=== PATIENT | female | born 1970 ===

== ENCOUNTER 2018-08-31 00:48 | Inpatient (IN) | payer SELFPAY ==
[2018-08-31 01:46] LABS: Actual Bicarbonate (HCO3a) 41.3 mEq/L (22-28); Analyzer IN Cardio ER; Base Excess (BEa) 13.8 mEq/L (-2.0 to +3.0); Calcium, Ionized 1.09 mmol/L (1.12-1.30); Hemoglobin (Hb) 14.9 g/dL (12.0-16.0); Potassium - ABG Lab 3.47 mmol/L (3.70-5.30); pH, Arterial 7.44 (7.35-7.45)
[2018-08-31 01:46] LABS: CKMB 1.1 ng/mL (0-6.6); Troponin I Less than 0.010 ng/mL (< 0.028)
[2018-08-31 01:47] LABS: ALV-art Gradient 129.255 (0-20); CO2 Tension 62.9 mmHg (35.0-45.0); O2 Tension (PaO2) 48.8 mmHg (80.0-100.0); Puncture Site RBA
[2018-08-31] MEDS ORDERED: methylPREDNISolone Sod Succ/PF 125 MG/2 ML VIAL ONE (01:50)
[2018-08-31] MEDS ORDERED: Magnesium 2 GM/50 ML BAG (IN WATER) ONE (01:50)
[2018-08-31] MEDS ORDERED: Lorazepam 2 MG/ML VIAL ONE (02:18)
[2018-08-31] MEDS ORDERED: cefTRIAXone\\ROCEPHIN 1 GM in Sodium Chloride 0.9% 100 ML IVPB SCH (04:00)
[2018-08-31 04:01] VITALS: BMI 56.8
[2018-08-31] MEDS ORDERED: Azithromycin 500 MG in Sodium Chloride 0.9% 250 ML 250 ML IVPB SCH (05:00)
[2018-08-31] MEDS ORDERED: Acetaminophen 325 MG TAB PO PRN (08:26)
[2018-08-31] MEDS ORDERED: hydrALAZINE 20 MG/ML VIAL SLOW IVP PRN (08:26)
[2018-08-31] MEDS: Famotidine 20 MG TAB PO SCH ×2 (11:43→21:27)
[2018-08-31] MEDS: Enoxaparin Sodium 40 MG/0.4 ML SYRINGE SC SCH (11:43)
--- NOTE | 2018-08-31 16:44 | HP ---
The patient currently does not have a primary care physician. CHIEF COMPLAINT: Shortness of breath. HISTORY OF PRESENT ILLNESS: Please note that the history of present illness is limited as the patient is currently on BiPAP and it is difficult for her to speak through the mouth. She also is quite tired. Ms. Gallo is a 47-year-old female , who has a history of chronic respiratory failure secondary to COPD. She was in her usual state of health until approximately 1 month ago. She says she began getting more and more short of breath, and then in the last week, she began having cough , which was productive of some yellow sputum. She had been requiring more oxygen than usual. She is apparently on home oxygen. Her O2 sats were in the upper 80s to low 90s. She was having more difficulty breathing, subjective fever and chills, but no chest pains, no nausea, no vomiting. As a result of her symptom, she came to the ER for evaluation in [place]. There, they did a chest x-ray, which demonstrated findings consistent with bilateral pneumonia. She also had an elevated white blood cell count, and she is being transferred to our facility for further treatment. She was also placed on BiPAP due to both hypoxia and hypercapnia. REVIEW OF SYSTEMS: All systems were reviewed and are negative except for that mentioned in the history of present illness. PAST MEDICAL HISTORY: Chronic respiratory failure with hypoxemia due to COPD. PAST SURGICAL HISTORY: She has had a breast cyst removed. ALLERGIES: PENICILLIN. SOCIAL HISTORY: She is a nonsmoker, nondrinker. She is single. She has 2 children. A full code. FAMILY HISTORY: Significant for possible emphysema in her mother. MEDICATIONS: Include; 1. Spiriva. 2. Symbicort 160/4.5 twice a day. 3. Mucinex. 4. Spironolactone 50 mg daily. PHYSICAL EXAMINATION: GENERAL: She is alert and oriented. She is in no acute distress at this time. She is well developed, well nourished. She is morbidly obese. VITAL SIGNS: Her blood pressure was 138/63, heart rate 109, respiratory rate of 24, temperature was 99.9, O2 sat 100% on BiPAP. HEENT: Her pupils are equal, round, and reactive. Her extraocular muscles are intact. Her sclerae are anicteric. Throat, there is no erythema. No exudates. NECK: No adenopathy. No bruits. LUNGS: She has bilateral wheezing and rhonchi as well as rales at the bases. CARDIOVASCULAR: She has normal S1 and S2. I did not appreciate an S3 or S4. No murmurs, clicks, or rubs. ABDOMEN: Obese, soft, nontender, nondistended. Positive for bowel sounds. There is no rebound. No guarding. No organomegaly. EXTREMITIES: She has trace pedal edema, some mild erythema. NEUROLOGIC: Cranial nerves 2 through 12 are grossly intact. Muscle strength is intact in both her upper and lower extremities. SKIN AND INTEGUMENT: Other than some mild erythema in the lower legs and the calf, there are no other skin lesions. LABORATORY AND X-RAY DATA: Her sodium is 143, potassium 4.0, chloride is 95, CO2 is 37, BUN 8.1, creatinine 0.8, glucose is 93, BNP is 15.1. White blood cell count is 18.18, hemoglobin 14.9, hematocrit is 47.6, platelet count is 269. Urinalysis is essentially negative other than large leukocyte esterase and 1+ bacteria. The chest x-ray was reported as having bilateral infiltrates. ASSESSMENT AND PLAN: This is a pleasant 47-year-old female, who presents with Acute on chronic respiratory failure with hypercapnia and hypoxemia. This is likely due to bilateral pneumonia in the setting of chronic obstructive pulmonary disease. For the respiratory failure, we will continue BiPAP. Pulmonology has been consulted and likely will try to wean her BiPAP off as soon as feasible. We will continue DuoNebs as well as empiric IV antibiotics. She has been started on IV Rocephin and Azithromycin in the ER, and will continue these. She will be placed on deep venous thrombosis and gastrointestinal prophylaxis, and further recommendations will depend on her progress. Job ID: [id number] [facility]
[2018-08-31] MEDS: Mometasone/Formoterol 120 PUFF INHALER INH SCH (18:36)
[2018-09-01 04:37] LABS: BUN (Urea Nitrogen) 13 mg/dL (7.0-18.7); Calc. Creatinine Clearance 196 mL/min (70-130); Calcium 9.3 mg/dL (7.8-10.44); Estimated GFR-MDRD 84; Glucose 152 mg/dL (70-105)
[2018-09-01 04:47] LABS: Anion Gap 15 mmol/L (10-20); Carbon Dioxide 35 mmol/L (22-29); Chloride 94 mmol/L (98-107); Potassium 3.8 mmol/L (3.5-5.1); Sodium 140 mmol/L (136-145)
[2018-09-01] MEDS: cefTRIAXone\\ROCEPHIN 1 GM in Sodium Chloride 0.9% 100 ML IVPB SCH (05:01)
[2018-09-01] MEDS: Azithromycin 500 MG in Sodium Chloride 0.9% 250 ML 250 ML IVPB SCH (05:03)
[2018-09-01 05:35] LABS: Band 5 % (5-11); Hemoglobin 13.6 g/dL (12.0-16.0); Lymphocytes 3 % (21-51); MDiff Complete? YES; Mean Corpuscular Hemoglobin 28.4 pg (27.0-31.0); Mean Corpuscular Volume 91.7 fL (78.0-98.0); Mean Platelet Volume 9.2 fL (7.4-10.4); Monocytes 2 % (0-10); Neutrophil 90 % (42-75); PLT Morphology Comment Appears Adequate; Platelet Count 240 thou/uL (130-400); RBC Distribution Width 14.2 % (11.5-14.5); RBC Morphology Normal; Red Blood Cell (RBC) Count 4.79 mill/uL (4.20-5.40); White Blood Cell (WBC) Count 14.9 thou/uL (4.8-10.8)
[2018-09-01] MEDS: Mometasone/Formoterol 120 PUFF INHALER INH SCH ×2 (06:50→18:51)
[2018-09-01] MEDS: Enoxaparin Sodium 40 MG/0.4 ML SYRINGE SC SCH (07:30)
[2018-09-01] MEDS: Famotidine 20 MG TAB PO SCH ×2 (07:30→20:14)
--- NOTE | 2018-09-01 08:37 | CON ---
DATE OF CONSULTATION: 08/31/2018 HISTORY OF PRESENT ILLNESS: Ms. Gallo is a 47-year-old female who is followed by [employer]. She was diagnosed with COPD in the past. She has not seen in quite some time. She also has home oxygen. She said she smoked half pack a day for about 20 years. She does not know whether she has ever had alpha-1 antitrypsin testing. She did have asthma as a child. PAST MEDICAL HISTORY: Remarkable for removal of breast cyst. SOCIAL HISTORY: She is a nonsmoker. She is a nondrinker. She has 2 children. She does not use drugs. Full code. FAMILY HISTORY: Not obtained. ALLERGIES: PENICILLIN. MEDICATIONS: Prior to admission, she is on, 1. Symbicort. 2. Spiriva. 3. Mucinex. She said she lost her insurance and she has not been back to see her physician. She is also on aldactone. REVIEW OF SYSTEMS: 10 point review of systems completed, otherwise is negative. The patient is having short of breath while awake. PHYSICAL EXAMINATION: VITAL SIGNS: She is afebrile. Heart rate is 88, respiratory rate is 20, oximetry is 94% on 3L, blood pressure 112/81. HEENT: Pupils are equal. Sclerae are anicteric. GENERAL: She is quite obese. She is 5 feet tall, 291 pounds. NECK: Supple. No lymphadenopathy. LUNGS: Remarkable for distant breath sounds with wheezes diffusely. HEART: Regular rhythm. S1 and S2 are normal. ABDOMEN: Soft and nontender. EXTREMITIES: Without clubbing, cyanosis, or edema. LABORATORY DATA: Blood gas; pH 7.44, pCO2 of 62, and PO2 of 38. There are no labs done here. Apparently, lab was done in [place]. IMPRESSION: 1. Acute on chronic respiratory failure with diagnosis of chronic obstructive pulmonary disease. 2. History of asthma. 3. Alpha 1 Antitrypsin levels to be ordered with phenotype. 4. Needs to repeat labs tomorrow. I suspect she has obesity hypoventilation syndrome as well. At some point, she needs a sleep study. She appears to be clinically stable at this time, probably could move her up to a medical bed. Chest radiograph was reviewed. The chest radiograph reportedly showed bilateral infiltrates . This is a 50 minute consult, with greater than 50% of time spent on unit in coordination of care. Job ID: [id number] [facility]
--- NOTE | 2018-09-01 09:35 | RAD ---
FRONTAL VIEW CHEST: Date: 09/01/18 COMPARISON: 08/30/18. INDICATION: Pneumonia. FINDINGS: There is elevation of the right hemidiaphragm. Interstitial opacities of bilateral perihilar regions are present. Patchy bibasilar densities remain. No significant interval change. IMPRESSION: Persistent bibasilar densities, which may relate to bibasilar pneumonia in the correct clinical nicanor xt. These findings are superimposed upon edema. Continued follow-up with 2 view chest would prove use ful. POS: TPC
--- NOTE | 2018-09-01 11:44 | PRG ---
DATE OF SERVICE: 09/01/2018 SUBJECTIVE: Essence Gallo says she is doing better. OBJECTIVE: VITAL SIGNS: She is afebrile. Heart rate 66, respiratory rate 16, oximetry is 94% on 3 L, blood pressure 130/82. LUNGS: Still remarkable for diffuse coarse wheezes. HEART: Regular rhythm. ABDOMEN: Soft. IMPRESSION: 1. Chronic obstructive pulmonary disease with an exacerbation. 2. Obesity with suspected sleep apnea. 3. ? pneumonia. . 4. Deconditioning. 5. Asthma as a child. 6. Half pack a day smoking for 20 years, usually not enough to create chronic obstructive pulmonary disease. I wonder she did not have chronic persistent asthma. An alpha-1 antitrypsin level has been submitted. PLAN: Continue current care. Job ID: [id number] MTDD
[2018-09-01] MEDS ORDERED: cloNIDine 0.1 MG TAB PO PRN (20:59)
[2018-09-01] MEDS ORDERED: Montelukast Sodium 10 mg Tablet PO SCH (21:00)
--- NOTE | 2018-09-01 21:03 | PDOC.PN ---
- Subjective Encounter Start Date: 09/01/18 Encounter Start Time: 12:00 Patient seen and examined for Resp failure. SOB improving. No new complaints. No overnight events - Objective Resuscitation Status - Order Detail: 08/31/18 08:19 Resuscitation Status Routine Resuscitation Status: FULL: Full Resuscitation MAR Reviewed: Yes Vital Signs & Weight: Vital Signs (12 hours) Temp Pulse Resp BP Pulse Ox 09/01/18 19:48 98.1 F 97 21 H 158/82 H 91 L 09/01/18 18:50 84 20 09/01/18 13:46 90 16 Weight Weight 291 lb 1.6 oz I&O: 08/31/18 09/01/18 09/02/18 06:59 06:59 06:59 Intake Total 360 750 960 Output Total 500 500 Balance -140 250 960 Result Diagrams: 09/01/18 03:55 09/01/18 03:55 Phys Exam - Physical Examination Constitutional: NAD Respiratory: no wheezing Bibasilar rales with rhonchi Cardiovascular: RRR, no rub Gastrointestinal: soft, positive bowel sounds Musculoskeletal: no edema Neurological: moves all 4 limbs Dx/Plan (1) Acute respiratory failure with hypoxia and hypercapnia Code(s): J96.01 - ACUTE RESPIRATORY FAILURE WITH HYPOXIA; J96.02 - ACUTE RESPIRATORY FAILURE WITH HYPERCAPNIA Status: Acute Comment: s/p NIPPV (2) CAP (community acquired pneumonia) Code(s): J18.9 - PNEUMONIA, UNSPECIFIED ORGANISM Status: Acute Comment: ? Pneumococcal (3) Chronic respiratory failure Code(s): J96.10 - CHRONIC RESPIRATORY FAILURE, UNSP W HYPOXIA OR HYPERCAPNIA Status: Chronic (4) Morbid obesity with BMI of 50.0-59.9, adult Code(s): E66.01 - MORBID (SEVERE) OBESITY DUE TO EXCESS CALORIES; Z68.43 - BODY MASS INDEX (BMI) 50-59.9, ADULT Status: Chronic (5) HTN (hypertension) Code(s): I10 - ESSENTIAL (PRIMARY) HYPERTENSION Status: Chronic - Plan DVT proph w/SCDs * Cont Atbx * Nebs Q4h * Resume Singuilair * AM labs * Cont other meds as below * Ambulate Review of Systems - Review of Systems Constitutional: negative: fever, chills, sweats, weakness, malaise, other Cardiovascular: negative: chest pain, palpitations, orthopnea, paroxysmal nocturnal dyspnea, edema, light headedness, other Gastrointestinal: negative: Nausea, Vomiting, Abdominal Pain, Diarrhea, Constipation, Melena, Hematochezia, Other - Medications/Allergies Allergies/Adverse Reactions: Allergies Allergy/AdvReac Type Severity Reaction Status Date / Time Penicillins Allergy Verified 08/31/18 03:56 Medications: Current Medications Acetaminophen (Tylenol) 650 mg PO Q4H PRN PRN Reason: Headache/Fever/Mild Pain (1-3) Last Admin: 09/01/18 15:17 Dose: 650 mg Albuterol/Ipratropium (Duoneb) 3 ml NEB [id number] HE Albuterol/Ipratropium (Duoneb) 3 ml NEB [id number] PRN PRN Reason: SOB &/or Wheezing Clonidine (Catapres) 0.1 mg PO Q4H PRN PRN Reason: Systolic BP > 180 Enoxaparin Sodium (Lovenox) 40 mg SC 0900 [facility] Last Admin: 09/01/18 07:30 Dose: 40 mg Escitalopram Oxalate (Lexapro) 10 mg PO DAILY [facility] Famotidine (Pepcid) 20 mg PO BID [facility] Last Admin: 09/01/18 20:14 Dose: 20 mg Hydralazine HCl (Apresoline) 10 mg SLOW IVP Q4H PRN PRN Reason: SBP > 180 and HR < 70 Azithromycin 500 mg/ Sodium (Chloride) 250 mls @ 250 mls/hr IVPB 0600 [facility] Last Admin: 09/01/18 05:03 Dose: 250 mls Ceftriaxone Sodium 1 gm/ (Sodium Chloride) 100 mls @ 200 mls/hr IVPB 0500 [facility] Last Admin: 09/01/18 05:01 Dose: 100 mls Methylprednisolone Sodium Succinate (Solu-Medrol) 40 mg IVP Q8HR [facility] Last Admin: 09/01/18 13:19 Dose: 40 mg Mometasone Furoate/Formoterol Fumar (Dulera 100 Mcg/5 Mcg Inhaler) 1 puff INH BID-RT [facility] Last Admin: 09/01/18 18:51 Dose: 1 puff Montelukast Sodium (Singulair) 10 mg PO QPM [facility] Last Admin: 09/01/18 20:14 Dose: 10 mg
[2018-09-02] MEDS: cefTRIAXone\\ROCEPHIN 1 GM in Sodium Chloride 0.9% 100 ML IVPB SCH (04:57)
[2018-09-02 05:23] LABS: Band 8 % (5-11); Hemoglobin 13.4 g/dL (12.0-16.0); Lymphocytes 5 % (21-51); MDiff Complete? YES; Mean Corpuscular HGB CONC 30.9 g/dL (32.0-36.0); Mean Corpuscular Hemoglobin 28.1 pg (27.0-31.0); Mean Platelet Volume 9.1 fL (7.4-10.4); Monocytes 4 % (0-10); Neutrophil 82 % (42-75); Nucleated RBC 1 % (0); Ovalocytes SLIGHT = 2-5 cells (100X) (0-1/hpf); PLT Morphology Comment Appears Adequate; Platelet Count 257 thou/uL (130-400); RBC Distribution Width 14.2 % (11.5-14.5); Reactive Lymphocytes 1 % (0-10); Red Blood Cell (RBC) Count 4.77 mill/uL (4.20-5.40); White Blood Cell (WBC) Count 14.7 thou/uL (4.8-10.8)
[2018-09-02 05:32] LABS: Anion Gap 13 mmol/L (10-20); BUN (Urea Nitrogen) 18 mg/dL (7.0-18.7); Calc. Creatinine Clearance 193 mL/min (70-130); Calcium 9.1 mg/dL (7.8-10.44); Carbon Dioxide 36 mmol/L (22-29); Chloride 95 mmol/L (98-107); Estimated GFR-MDRD 83; Glucose 146 mg/dL (70-105); Magnesium 2.3 mg/dL (1.6-2.6); Potassium 3.7 mmol/L (3.5-5.1); Sodium 140 mmol/L (136-145)
[2018-09-02] MEDS: Azithromycin 500 MG in Sodium Chloride 0.9% 250 ML 250 ML IVPB SCH (06:05)
[2018-09-02] MEDS: Mometasone/Formoterol 120 PUFF INHALER INH SCH (07:01)
[2018-09-02 08:00] VITALS: BP 130/78; TEMP 98.2
[2018-09-02] MEDS: Famotidine 20 MG TAB PO SCH (08:55)
[2018-09-02] MEDS: Enoxaparin Sodium 40 MG/0.4 ML SYRINGE SC SCH (08:55)
[2018-09-02] MEDS ORDERED: Escitalopram Oxalate 10 mg Tablet PO SCH (09:00)
[2018-09-02] MEDS ORDERED: guaiFENesin ER 600 MG TAB PO SCH (09:00)
--- NOTE | 2018-09-02 14:34 | PDOC.PN ---
- Subjective Encounter Start Date: 09/02/18 Encounter Start Time: 09:30 Patient seen and examined for Resp failure. No new complaints. No overnight events - Objective Resuscitation Status - Order Detail: 08/31/18 08:19 Resuscitation Status Routine Resuscitation Status: FULL: Full Resuscitation MAR Reviewed: Yes Vital Signs & Weight: Vital Signs (12 hours) Temp Pulse Resp BP Pulse Ox 09/02/18 14:16 75 18 90 L 09/02/18 10:15 88 20 90 L 09/02/18 08:00 93 L 09/02/18 07:56 98.2 F 94 22 H 130/78 93 L 09/02/18 07:01 95 22 H 92 L 09/02/18 06:45 78 20 93 L Weight Weight 291 lb 1.6 oz I&O: 09/01/18 09/02/18 09/03/18 06:59 06:59 06:59 Intake Total 750 960 Output Total 500 Balance 250 960 Result Diagrams: 09/02/18 04:06 09/02/18 04:06 Phys Exam - Physical Examination Constitutional: NAD Respiratory: no wheezing Scat rhonchi Cardiovascular: RRR, no rub Gastrointestinal: soft, non-tender Musculoskeletal: no edema Neurological: moves all 4 limbs Dx/Plan (1) Acute respiratory failure with hypoxia and hypercapnia Code(s): J96.01 - ACUTE RESPIRATORY FAILURE WITH HYPOXIA; J96.02 - ACUTE RESPIRATORY FAILURE WITH HYPERCAPNIA Status: Acute Comment: s/p NIPPV (2) CAP (community acquired pneumonia) Code(s): J18.9 - PNEUMONIA, UNSPECIFIED ORGANISM Status: Acute Comment: ? Pneumococcal (3) Chronic respiratory failure Code(s): J96.10 - CHRONIC RESPIRATORY FAILURE, UNSP W HYPOXIA OR HYPERCAPNIA Status: Chronic (4) Morbid obesity with BMI of 50.0-59.9, adult Code(s): E66.01 - MORBID (SEVERE) OBESITY DUE TO EXCESS CALORIES; Z68.43 - BODY MASS INDEX (BMI) 50-59.9, ADULT Status: Chronic (5) HTN (hypertension) Code(s): I10 - ESSENTIAL (PRIMARY) HYPERTENSION Status: Chronic - Plan DVT proph w/SCDs * Cont Atbx/Steroids with Nebs Q4h * Cont other meds as below * Ambulate Review of Systems - Review of Systems Respiratory: negative: Cough, Dry, Shortness of Breath, Hemoptysis, SOB with Excertion, Pleuritic Pain, Sputum, Wheezing Cardiovascular: negative: chest pain, palpitations, orthopnea, paroxysmal nocturnal dyspnea, edema, light headedness, other - Medications/Allergies Allergies/Adverse Reactions: Allergies Allergy/AdvReac Type Severity Reaction Status Date / Time Penicillins Allergy Verified 08/31/18 03:56 Medications: Current Medications Acetaminophen (Tylenol) 650 mg PO Q4H PRN PRN Reason: Headache/Fever/Mild Pain (1-3) Last Admin: 09/01/18 15:17 Dose: 650 mg Albuterol/Ipratropium (Duoneb) 3 ml NEB [id number] [facility] Last Admin: 09/02/18 14:16 Dose: 3 ml Albuterol/Ipratropium (Duoneb) 3 ml NEB Q2H PRN PRN Reason: SOB &/or Wheezing Clonidine (Catapres) 0.1 mg PO Q4H PRN PRN Reason: Systolic BP > 180 Enoxaparin Sodium (Lovenox) 40 mg SC 0900 [facility] Last Admin: 09/02/18 08:55 Dose: 40 mg Escitalopram Oxalate (Lexapro) 10 mg PO DAILY [facility] Last Admin: 09/02/18 08:55 Dose: 10 mg Famotidine (Pepcid) 20 mg PO BID [facility] Last Admin: 09/02/18 08:55 Dose: 20 mg Guaifenesin (Mucinex) 600 mg PO Q12HR [facility] Last Admin: 09/02/18 08:55 Dose: 600 mg Hydralazine HCl (Apresoline) 10 mg SLOW IVP Q4H PRN PRN Reason: SBP > 180 and HR < 70 Azithromycin 500 mg/ Sodium (Chloride) 250 mls @ 250 mls/hr IVPB 0600 [facility] Last Admin: 09/02/18 06:05 Dose: 250 mls Ceftriaxone Sodium 1 gm/ (Sodium Chloride) 100 mls @ 200 mls/hr IVPB 0500 [facility] Last Admin: 09/02/18 04:57 Dose: 100 mls Methylprednisolone Sodium Succinate (Solu-Medrol) 40 mg IVP Q8HR [facility] Last Admin: 09/02/18 06:00 Dose: 40 mg Mometasone Furoate/Formoterol Fumar (Dulera 100 Mcg/5 Mcg Inhaler) 1 puff INH BID-RT HE Last Admin: 09/02/18 07:01 Dose: 1 puff Montelukast Sodium (Singulair) 10 mg PO QPM [facility] Last Admin: 09/01/18 20:14 Dose: 10 mg Sodium Chloride (Flush - Normal Saline) 10 ml IVF PRN PRN PRN Reason: Saline Flush Last Admin: 09/01/18 21:51 Dose: 10 ml
--- NOTE | 2018-09-02 16:00 | DIS ---
DATE OF ADMISSION: 08/31/2018 DATE OF DISCHARGE: 09/02/2018 DISCHARGE DISPOSITION: Home. FOLLOWUP: 1. Follow up with primary care physician out of town in 1 week. 2. Follow up with Dr. Raul Ferrara after 1 to 2 weeks. ALLERGIES: PENICILLIN. THE PATIENT WAS ADVISED TO FOLLOW UP ON ALPHA ANTITRYPSIN LEVELS. DISCHARGE MEDICATIONS: 1. Omnicef 300 mg twice a day. 2. Prednisone taper. 3. All other home medications were left unchanged. BRIEF HOSPITAL COURSE: The patient is a 47-year-old female with chronic respiratory failure, on home oxygen, presented to the emergency room with worsening shortness of breath. Please refer to the history and physical for further details. The patient was admitted to the hospital with a diagnosis of acute hypoxic and hypercapnic respiratory failure. ABGs showed pH of 7.44 with pCO2 62.9, PO2 48.8, with bicarbonate of 41.3 on 36% FiO2. She showed good improvement with IV antibiotics and steroids. She also required noninvasive positive pressure ventilation briefly. She has been cleared by consultants for discharge. FINAL DIAGNOSES: 1. Acute hypoxic and hypercapnic respiratory failure. 2. Community-acquired pneumonia, suspected pneumococcal. 3. Chronic respiratory failure, on home oxygen. 4. Morbid obesity with a BMI of 56.9. 5. Hypertension. 6. Penicillin allergy. PLAN: Plan of care was discussed with the patient in detail, she stated understanding. Job ID: [id number]
--- NOTE | 2018-09-02 16:09 | PRG ---
DATE OF SERVICE: 09/02/2018 SUBJECTIVE: The patient wants to go home. She says she is back to her baseline. OBJECTIVE: VITAL SIGNS: Temperature 98.2, pulse 75, respirations 18, O2 saturation 98% on 4 L, blood pressure 130/78. HEENT: Unremarkable. NECK: No adenopathy or JVD. CHEST: Clear. CARDIAC: S1, S2 regular. ABDOMEN: Soft. EXTREMITIES: No edema. ASSESSMENT: Chronic obstructive pulmonary disease with exacerbation. PLAN: She can go home on oral antibiotics and steroid taper. She has oxygen set up at home. She can follow up with Dr. Ferrara in few weeks. Job ID: [id number]
== END 2018-09-02 18:37 | disposition home or self-care (01) | DRG 193 ==
LOC: ERS 00:48 → IMCU/EMU 03:52 → T4-B 22:13
PROVIDERS: ADMIT Internal Medicine; ATTEND Internal Medicine
DX: J18.9 Pneumonia, unspecified organism (principal); J96.01 Acute respiratory failure with hypoxia; J96.02 Acute respiratory failure with hypercapnia; Z68.43 Body mass index [BMI] 50.0-59.9, adult; J44.1 Chronic obstructive pulmonary disease with (acute) exacerbation; J44.0 Chronic obstructive pulmonary disease with (acute) lower respiratory infection; E66.01 Morbid (severe) obesity due to excess calories; I10 Essential (primary) hypertension
CPT/HCPCS: 36415; 71045; 80048; 82103; 82553; 82805; 83735; 84484; 85007; 85027; 90471; 90732; 94640; 94660; 96365; 96375; G0009; J0456; J0696; J1650; J2060; J2920; J2930; J7050; J7620